=== PATIENT | female | born 1990 | race Caucasian/White ===

== ENCOUNTER 2022-02-03 12:23 | Inpatient (IN) | payer OTHER ==
[2022-02-03 13:56] VITALS: BMI 31.4
[2022-02-03 14:53] LABS: BASO % 0.2 % (0-2.0); EOS % 0.2 % (0-4.5); HEMOGLOBIN 10.4 GM/dL (10.7-15.3); LYMPH % 13.4 % (8-40); MCHC 33.5 g/dl (32.0-36.0); MEAN CELL VOLUME 80.6 fl (80-96); MEAN PLT VOLUME 7.8 fl (7.5-11.1); MONO % 9.2 % (3.8-10.2); PLATELET COUNT 295 10^3/uL (134-434); RBC 3.85 M/mm3 (3.60-5.2); RDW 15.5 % (11.6-15.6); WHITE BLOOD COUNT 8.5 K/mm3 (4.0-10.0)
[2022-02-03 14:59] LABS: INR 1.01 (0.83-1.09); PROTHROMBIN TIME (PATIENT) 11.6 SEC (9.7-13.0)
[2022-02-03 15:02] LABS: ACTIVATED PTT 27.9 SECONDS (25.2-36.5)
[2022-02-03 15:13] LABS: BLOOD UREA NITROGEN 6.2 mg/dL (7-18); CALCIUM 8.4 mg/dL (8.5-10.1)
[2022-02-03 15:17] LABS: CREATININE 0.6 mg/dL (0.55-1.3)
[2022-02-03] MEDS: DEXTROSE 5%-LACTATED RINGERS 1,000 ML IV SCH ×2 (15:20→16:30)
[2022-02-03] MEDS ORDERED: SODIUM CHLORIDE 1,000 ML IV STA (15:30)
[2022-02-03] MEDS ORDERED: FENTANYL/BUPIVACAINE/NS/PF - PCEA - 50 ML DISP.SYRIN EP ONE (15:59)
[2022-02-03] MEDS: FENTANYL/BUPIVACAINE/NS/PF - PCEA - 50 ML DISP.SYRIN EP SCH (16:45)
[2022-02-03] MEDS ORDERED: OXYTOCIN 30 UNITS in 0.9% NS 30 UNIT/500 ML INFUS.BAG IVPB ONE (16:46)
[2022-02-03] MEDS ORDERED: NALOXONE HCL 0.4 MG/ML VIAL IVPUSH PRN (16:55)
[2022-02-03] MEDS: OXYTOCIN 30 UNITS in 0.9% NS 30 UNIT/500 ML INFUS.BAG IVPB SCH (17:00)
[2022-02-03] MEDS ORDERED: OXYTOCIN 20 UNITS in 0.9% NS 20 UNIT/1,000 ML INFUS.BAG IV ONE ×2 (18:51→18:55)
[2022-02-03] MEDS ORDERED: LIDOCAINE HCL 1% PRESERVATIVE FREE - 30ML VIAL ONE (18:55)
[2022-02-03] MEDS ORDERED: BENZOCAINE 28 GM HEMORRHOIDAL OINTMENT TP PRN (19:37)
[2022-02-03] MEDS ORDERED: WITCH HAZEL 50% (TUCKS) 40 PAD/JAR PAD TP PRN (19:37)
[2022-02-03] MEDS ORDERED: ACETAMINOPHEN 325 MG TABLET (FP) PO PRN (19:37)
[2022-02-03] MEDS ORDERED: BENZOCAINE 20% 57 GM BOTTLE TP PRN (19:37)
[2022-02-03] MEDS ORDERED: OXYTOCIN 20 UNITS in 0.9% NS 20 UNIT/1,000 ML INFUS.BAG IV SCH (19:45)
[2022-02-03 20:29] LABS: CORD BASE EXCESS -6.4 mmol/L (0-2); CORD HCO3 19.4 mmHg (20-29); CORD PCO2 39.9 mmHg (30-78); CORD pH 7.305 (7.14-7.44)
[2022-02-03 20:37] LABS: CORD HCO3 19.6 mmHg (20-29); CORD pH 7.276 (7.14-7.44)
[2022-02-04] MEDS: IBUPROFEN 600 MG TABLET (FP) PO PRN ×4 (02:50→21:14)
[2022-02-04] MEDS: FERROUS SO4 325 MG TABLET (FP) PO SCH ×3 (09:00→18:08)
[2022-02-04 09:13] VITALS: RESP 18
[2022-02-04] MEDS: PRENATAL VITAMINS W/ FOLIC ACID TABLET (FP) PO SCH (09:32)
[2022-02-04 09:39] LABS: BASO % 0.9 % (0-2.0); EOS % 0.3 % (0-4.5); HEMATOCRIT 31.3 % (32.4-45.2); HEMOGLOBIN 10.1 GM/dL (10.7-15.3); LYMPH % 18.1 % (8-40); MCH 26.4 pg (25.7-33.7); MCHC 32.2 g/dl (32.0-36.0); MEAN CELL VOLUME 81.9 fl (80-96); MEAN PLT VOLUME 8.6 fl (7.5-11.1); MONO % 5.9 % (3.8-10.2); NEUT % 74.8 % (42.8-82.8); PLATELET COUNT 239 10^3/uL (134-434); RBC 3.82 M/mm3 (3.60-5.2); RDW 15.3 % (11.6-15.6); WHITE BLOOD COUNT 10.4 K/mm3 (4.0-10.0)
[2022-02-04 10:56] LABS: POC NITRAZINE NEG
[2022-02-04] MEDS ORDERED: SENNOSIDES/DOCUSATE COMBO (SENNA PLUS) TABLET (UD) PO PRN (22:00)
[2022-02-04] MEDS: OXYTOCIN 30 UNITS in 0.9% NS 30 UNIT/500 ML INFUS.BAG IVPB SCH (22:58)
[2022-02-04] MEDS: FENTANYL/BUPIVACAINE/NS/PF - PCEA - 50 ML DISP.SYRIN EP SCH (23:13)
[2022-02-05 08:13] VITALS: BP 114/70; PULSE 79; TEMP 98.3
[2022-02-05] MEDS: FERROUS SO4 325 MG TABLET (FP) PO SCH ×2 (08:28→12:28)
[2022-02-05] MEDS: PRENATAL VITAMINS W/ FOLIC ACID TABLET (FP) PO SCH (10:01)
[2022-02-05] MEDS: IBUPROFEN 600 MG TABLET (FP) PO PRN (10:01)
== END 2022-02-05 14:07 | disposition home or self-care (01) | DRG 560 ==
LOC: JDEL 12:23 → JLDR 13:10 → J3W 22:12
PROVIDERS: ADMIT Obstetrics & Gynecology Maternal & Fetal Medicine; ATTEND Obstetrics & Gynecology Maternal & Fetal Medicine
PROC: 10D07Z6 Extraction of Products of Conception, Vacuum, Via Natural or Artificial Opening (ICD-10-PCS; principal; 2022-02-03)
DX: O42.02 Full-term premature rupture of membranes, onset of labor within 24 hours of rupture (principal); O99.12 Other diseases of the blood and blood-forming organs and certain disorders involving the immune mechanism complicating childbirth; D68.62 Lupus anticoagulant syndrome; O69.81X0 Labor and delivery complicated by cord around neck, without compression, not applicable or unspecified; Z3A.37 37 weeks gestation of pregnancy; Z37.0 Single live birth
CPT/HCPCS: 36415; 36600; 59409; 80048; 82803; 83986-QW; 85025; 85610; 85730; 86780; 86850; 86900; 86901; 88307-TC; C9803-CS; U0003; U0005

== ENCOUNTER 2022-02-06 14:13 | Emergency (ER) | payer OTHER ==
[2022-02-06 14:41] VITALS: BP 111/76; PULSE 93; RESP 18; TEMP 98.1; BMI 26.6
== END 2022-02-06 17:20 | disposition home or self-care (01) ==
LOC: JER 14:13
DX: M79.662 Pain in left lower leg (principal)
CPT/HCPCS: 93971-TC; 99284-25

== ENCOUNTER 2022-05-09 10:28 | Emergency (ER) | payer OTHER ==
[2022-05-09 10:48] VITALS: BMI 27.1
[2022-05-09 14:34] LABS: BASO % 0.7 % (0-2.0); EOS % 0.9 % (0-4.5); HEMOGLOBIN 12.6 GM/dL (10.7-15.3); MCH 27.1 pg (25.7-33.7); MEAN CELL VOLUME 81.9 fl (80-96); MEAN PLT VOLUME 7.8 fl (7.5-11.1); MONO % 6.4 % (3.8-10.2); PLATELET COUNT 369 10^3/uL (134-434); RBC 4.65 M/mm3 (3.60-5.2); WHITE BLOOD COUNT 8.8 K/mm3 (4.0-10.0)
[2022-05-09 15:00] LABS: BLOOD UREA NITROGEN 11.1 mg/dL (7-18); CALCIUM 8.9 mg/dL (8.5-10.1)
[2022-05-09 15:03] LABS: CREATININE 0.7 mg/dL (0.55-1.3)
[2022-05-09 15:05] LABS: BILIRUBIN,TOTAL 0.9 mg/dL (0.2-1); TOT PROT 8.2 g/dl (6.4-8.2)
[2022-05-09 15:32] VITALS: BP 98/65; PULSE 77; RESP 20; TEMP 98.1
[2022-05-09 16:37] LABS: INR 1.12 (0.83-1.09)
[2022-05-09 16:40] LABS: ACTIVATED PTT 31.5 SECONDS (25.2-36.5)
== END 2022-05-09 17:30 | disposition home or self-care (01) ==
LOC: JER 10:28
DX: R07.9 Chest pain, unspecified (principal)
CPT/HCPCS: 0241U-QW; 36415; 71046-TC-FY; 80053; 84484; 84703; 85025; 85379; 85610; 85730; 93005; 93010; 99285-25

== ENCOUNTER 2022-05-31 13:47 | Emergency (ER) | payer OTHER ==
[2022-05-31 13:50] VITALS: BP 121/68; PULSE 81; RESP 18; TEMP 97.2; BMI 26.6
[2022-05-31] MEDS ORDERED: ACETAMINOPHEN 500 MG TABLET (FP) PO ONE (15:21)
[2022-05-31] MEDS ORDERED: ACETAMINOPHEN 500 MG TABLET (FP) ONE (15:26)
== END 2022-05-31 15:36 | disposition home or self-care (01) ==
LOC: JERFT 13:47
DX: J02.9 Acute pharyngitis, unspecified (principal)
CPT/HCPCS: 87651; 99283-25